=== PATIENT | female | born 2000 | race Caucasian/White ===

== ENCOUNTER 2020-04-29 12:15 | Emergency (ER) | payer OTHER, SELFPAY ==
[2020-04-29 12:48] VITALS: BP 134/97; PULSE 100; RESP 18; TEMP 37.4; O2SAT 98; BMI 36.1
[2020-04-29 14:15] VITALS: RESP 18
--- NOTE | 2020-04-29 14:29 | W.ED.NEUROSD ---
HPI - Neuro Symptoms/Deficit General: Chief Complaint: Weakness Stated Complaint: right side facial numbness Time Seen by Provider: 04/29/20 14:15 Source: patient Mode of arrival: ambulatory Limitations: no limitations History of Present Illness: HPI Narrative: Patient is a nice 19-year-old female who presents to ED today with complaints of drooping to the right side of her face that she noticed this morning when she awoke. Patient denies headache, visual changes, neck pain/stiffness. She has not had any recent URI or viral-like illness. No fever/chills. She denies numbness, tingling, weakness to her upper or lower extremities. Denies slurred speech, aphasia. Onset (ago): hour(s) Location: right face History of same: No Relieving factors: none Exacerbating factors: none On Anticoagulants: No Associated symptoms: Reports no associated symptoms; Deny chest pain, headache(s), malaise, nausea, vertigo or vomiting Treatments Prior to Arrival: none Review of Systems Const: Denies: fever(s), chills, body aches, fatigue or malaise Eyes: Denies: change in vision, blurry vision, photophobia or eye discomfort ENMT: Denies: odynophagia, swelling of lips/tongue, oral sores, ear or mastoid pain, change in hearing, nasal discharge, nasal congestion or epistaxis Card: Denies: chest pain Resp: Denies: dyspnea GI: Denies: nausea or vomiting Musc: Denies: neck pain Skin/Breast: Denies: rash Neuro: Denies: headache(s), numbness in extremities, weakness in extremities, lack of coordination, frequent falls, dizziness, vertigo, Slurred speech present, difficulty communicating thoughts or seizure-like activity [facility] ED PFSH: Social History (Updated 09/25/19 @ 13:08 by Oriana Reynoso LPN) Smoking and tobacco status: never smoked Physical Exam Const: COMMON NORMALS: no acute distress, average body habitus, patient oriented x3, no limitations, healthy appearing, alert and well nourished ORIENTATION/CONSCIOUSNESS: Yes oriented to person, Yes oriented to place and Yes oriented to time HENMT: COMMON NORMALS: normocephalic, atraumatic, hearing grossly normal bilaterally, external ears normal, EAC's normal, TM's normal bilaterally, Normal external nose present, Normal nasal mucous membranes and turbinates present, moist oral mucous membranes, oropharynx normal, dentition normal and gingiva normal HEAD & SCALP: normal to inspection, normocephalic and atraumatic FACE & SINUS: face not symmetric NOSE: Normal external nose present and Normal nasal mucous membranes and turbinates present EXTERNAL EAR: Yes external ears normal EXTERNAL AUDITORY CANAL: EAC's normal TYMPANIC MEMBRANE: TM's normal bilaterally THROAT: posterior oropharynx normal, tonsils normal and uvula midline OTHER: pt with drooping to R side of mouth; R eye does not blink in coordination with L eye Eye: COMMON NORMALS: Equal, round and reactive pupils present, EOMs intact bilaterally, conjunctivae normal and no scleral icterus GENERAL EYE: normal light reflex VISUAL ACUITY: Yes acuity normal VISUAL FIGUEROA: No peripheral vision loss CONJUNCTIVA: Yes conjunctivae normal PUPIL: Yes Equal, round and reactive pupils present DIRECT OPHTHALMOSCOPY: Yes normal light reflex Neck/C-Spine: COMMON NORMALS: full ROM and no lymphadenopathy CAROTIDS: Yes normal carotid upstroke, No bruit and No Carotid tenderness present Extremity: COMMON NORMALS: normal to inspection GENERAL: Yes normal exam except as noted Neuro: ARLETTE COMA SCALE: document GCS findings [place] coma scale eye opening: Spontaneous [place] coma scale verbal response: Orientated [place] coma scale motor response: Obey commands [place] coma scale total score: 15 COMMON NORMALS: patient oriented x3, moves all extremities and gait normal SENSORIUM/ORIENTATION: Yes alert, Yes oriented to person, Yes oriented to place and Yes oriented to time CRANIAL NERVES: Yes CN VII (facial) Laterality: right CN VII findings: facial droop, unable to puff cheeks, unable to raise eyebrow(s), weak closing of eye(s), asymmetrical smile, absence of eye blink in response to stimulus and impaired sense of taste COORDINATION/BALANCE: [id number] test normal, [id number]-[id number] test normal and Normal rapid alternating movements of the distal upper extremity present (Neuro) SPEECH: speech normal GAIT: Yes Normal gait present MOTOR EXAM: 5/5 motor strength present throughout COORDINATION: [id number]-[id number] test normal, flxz-op-[id number] test normal, Romberg test normal and rapid alternating movement UE normal Skin: COMMON NORMALS: no rashes or lesions noted GENERAL SKIN EXAM: no rashes or lesions noted Course Vital Signs: Vital signs: Vital Signs Temperature 99.3 F 04/29/20 12:48 Pulse Rate 100 04/29/20 12:48 Respiratory Rate 18 04/29/20 14:15 Blood Pressure 134/97 04/29/20 12:48 Pulse Oximetry 98 04/29/20 12:48 MDM - Neuro Symptoms/Deficit MDM Narrative: Medical decision making narrative: Patient clinically with Robbins's Palsy. Will place on steroids and have her follow up with PCP next week for re-evaluation Discharge Plan Discharge Patient Disposition: Home Clinical Impression: Robbins's palsy Condition: Stable Prescriptions: New prednisone 20 mg tablet 20 mg PO BID 10 Days Qty: 20 RF: 0 Discharge Orders: Discharge Order (Routine); Ordered 04/29/20 Ordered By: Olive Rea Referrals: Guanako Garcia [Primary Care Provider] - Patient Instructions: Robbins's Palsy Activity Restrictions/Additional Instructions: Begin your prescription as soon as possible. Please follow-up with primary care next week for reevaluation. Discharge Date/Time: 04/29/20 14:53 Coding Level of Care Code ED Stretching Machine Operator for Marc Hobbs
--- NOTE | 2020-05-02 14:28 | DCPLANNER ---
cost manager had message to speak with patient about getting established with a primary care physician. cost manager spoke with patient, and she stated that she would like to get established with a physician. cost manager called [facility], spoke with Radha, a follow up appointment was scheduled for Tuesday, May 05, 2020 at 10:[address] Mike. cost manager called patient and informed patient of the scheduled appointment. Patient stated that she would attend the appointment.
--- NOTE | 2020-05-11 08:01 | DCPLANNER ---
Patient had a follow up appointment at [facility] on 05.05.[address] care [address]. Mike - patient attended appointment.
== END 2020-04-29 14:53 | disposition home or self-care (01) ==
PROVIDERS: Emergency Provider Physician Assistant; PCP Family Medicine
DX: G51.0 Bell's palsy (principal)
CPT/HCPCS: 12345; 99281; 99282

== ENCOUNTER 2021-05-27 11:08 | Emergency (ER) | payer OTHER, SELFPAY ==
[2021-05-27 11:25] VITALS: BP 139/88; PULSE 107; RESP 18; TEMP 37.1; O2SAT 97; BMI 36.3
[2021-05-27 12:56] VITALS: BP 123/88; PULSE 83; RESP 18; O2SAT 97
--- NOTE | 2021-05-27 13:12 | W.ED.GENADLT ---
HPI - General Adult General: Chief complaint: Dental/Oral Stated complaint: Tooth Ache, Swollen lft side of face Time Seen by Provider: 05/27/21 12:51 History of Present Illness: HPI narrative: Patient is a 20-year-old female without any significant past medical history presents the emergency room with complaints of L 3rd upper molar pain and now left-sided facial swelling x 4 days. Denies any fever/chills, trismus, drooling, voice change, hoarseness, neck pain, or difficulty swallowing. Onset: 4 days ago Duration:4 days Location:home Severity:mild Review of Systems Narrative: Constitutional: No fever, no chills. HEENT: +l facial swelling CV: No chest pain, no palpitations PULM: no cough, no dyspnea. GI: No abdominal pain, no N/V/D. : No dysuria MSKEL: No muscle pain SKIN: No new rashes, no lesions. NEURO: No headache, no focal weakness. HEME: No visible bruises PSYCH: Normal mood PFSH ED PFSH: Social History (Updated 05/05/20 @ 09:46 by Lianna Briones LPN) Smoking and tobacco status: never smoked Alcohol intake: never Female Reproductive History: Date of last menstrual period: 11/16/20 Physical Exam Narrative: EXAM NARRATIVE: Head: Atraumatic Eyes: PERRL, conjunctiva without injection ENT: Mucous membrane moist No trismus, no tongue protrusion or elevation, no oropharygeal edema +mild L 3rd molar tenderness, +mild L facial swelling with tenderness and no palpable fluctance NECK: Supple, ROM intact LUNGS: LCTAB, no crackles/rhonchi CV: RRR ABDOMEN: Soft, nontender in all quadrants EXTREMITY: Normal ROM SKIN: No rash or erythema NEURO: Awake and alert, no focal motor deficits PSYCH: Normal mood and affect Course Vital Signs: Vital signs: Vital Signs Temperature 98.7 F 05/27/21 11:25 Pulse Rate 83 05/27/21 12:56 Respiratory Rate 18 05/27/21 12:56 Blood Pressure 123/88 05/27/21 12:56 Pulse Oximetry 97 05/27/21 12:56 MDM - General Adult MDM Narrative: Medical decision making narrative: 20-year-old female presented to emergency room with left-sided facial swelling secondary to odontogenic infection. At the present time, do not suspect Deon infection or significant soft tissue infection. At the present time, there is no palpable fluctuance. I have offered patient incision drainage however patient declined at this time, electing for antibiotics only. Patient does not have any risk factors for immunocompromise. I suspect the patient may improve with p.o. antibiotics. I performed a shared decisionmaking with patient in regards to I&D of the facial swelling. Decision was made to defer incision drainage today per patient. Rx augmentin BID x 7 days Disposition: Discharge. Patient counseled regarding diagnostic impression, treatment plan. Patient given ED strict return precautions to return for continuation, worsening, or development of new symptoms. Instructed to f/u w/ PCP regarding symptoms today. Patient verbalized understanding. Discharge Plan Discharge Patient Disposition: Home Clinical Impression: Facial swelling, Toothache Condition: Stable Prescriptions: New Augmentin 875-125 mg tablet 1 tab PO BID 7 Days Qty: 14 RF: 0 Discharge Orders: Discharge ED (Routine); Ordered 05/27/21 Ordered By: Mp Byrd Referrals: Guanako Garcia [Primary Care Provider] - Discharge Diet: Advance as tolerated Discharge Activity: Resume usual activity Patient Instructions: Dental Abscess (ED) Activity Restrictions/Additional Instructions: Follow-up with the dentist. You will need to get your tooth checked otherwise for facial swelling only get worse. Take your antibiotics as instructed. Come back to the emergency room if any facial swelling, drooling, fever/chills, difficulty moving her jaws, voice change, or any worsening infection. Coding Level of Care Code ED Cosmetic Sales Assistant for Marc Hobbs
== END 2021-05-27 13:20 | disposition home or self-care (01) ==
PROVIDERS: Emergency Provider Emergency Medicine; PCP Family Medicine
DX: K08.89 Other specified disorders of teeth and supporting structures (principal); M79.89 Other specified soft tissue disorders
CPT/HCPCS: 99281

== ENCOUNTER → 2024-08-05 08:46 | Outpatient (BNVA) | payer BC, SELFPAY | PROVIDERS: PCP Family Medicine; Visit Provider Nurse Practitioner Women's Health | DX: N93.9 Abnormal uterine and vaginal bleeding, unspecified (principal) | CPT/HCPCS: 76830 ==

== ENCOUNTER → 2024-10-20 13:28 | Outpatient (BNVA) | payer BC, SELFPAY | PROVIDERS: PCP Family Medicine; Visit Provider Nurse Practitioner Women's Health | DX: Z00.00 Encounter for general adult medical examination without abnormal findings (principal) | CPT/HCPCS: 87624 ==

== ENCOUNTER 2025-04-12 10:47 | Outpatient (CLI) | payer BC, SELFPAY ==
[2025-04-12 11:51] LABS: Estmated Average Glucose 91; Hemoglobin A1C 4.8 % (4.0-6.0)
[2025-04-13 08:44] LABS: Insulin ( Reference Lab Test) 8.4 uIU/mL
== END 2025-04-12 10:48 | disposition home or self-care (01) ==
LOC: LAB 10:48
PROVIDERS: PCP Family Medicine; Visit Provider Internal Medicine
DX: E28.2 Polycystic ovarian syndrome (principal)
CPT/HCPCS: 36415; 83036; 83525; 84403

== ENCOUNTER → 2025-04-28 11:13 | Outpatient (BNVA) | payer BC, SELFPAY | PROVIDERS: PCP Family Medicine; Referring Provider Nurse Practitioner Women's Health; Visit Provider Internal Medicine | DX: Z36.89 Encounter for other specified antenatal screening (principal) | CPT/HCPCS: 36415; 84703 ==